=== PATIENT | female | born 1945 | race Caucasian/White ===

== ENCOUNTER 2024-04-09 16:29 | Inpatient (IN) | payer MEDICARE, SELFPAY ==
--- NOTE | ~2024-04-09 | XR_ITS ---
EXAMINATION: XR CHEST CLINICAL INFORMATION: Pneumonia. COMPARISON: None available. TECHNIQUE: 2 views of the chest were obtained (PA and lateral). FINDINGS: The lungs are hyperexpanded. Moderately increased irregular lung markings throughout. Hazy/patchy airspace opacification in the right lung base with partial silhouetting of the posterior right hemidiaphragm. No additional focal consolidative process. No evidence of pleural effusion, pulmonary edema, or pneumothorax. The cardiomediastinal silhouette is within normal limits. No acute osseous abnormalities. Mild hyperkyphosis of the thoracic spine. Mild multilevel degenerative spondyloarthropathy of the thoracic spine. XR/XR chest 2V IMPRESSION: 1. Hazy/patchy airspace opacification in the right lung base suggestive of developing pneumonia in the appropriate clinical setting. 2. Underlying emphysema. Electronically signed by: Sammy Santos DO 04/09/2024 08:31 PM EDT
[2024-04-09 16:34] VITALS: BP 148/73; PULSE 113; RESP 20; TEMP 37.6; O2SAT 89; BMI 17.0
--- NOTE | 2024-04-09 16:34 | ED.GENADULT ---
HPI - General Adult General Chief complaint: Dyspnea Stated complaint: pheumonia? Time Seen by Provider: 04/09/24 21:41 Source: patient Limitations: no limitations History of Present Illness ED Provider: Adriane wilkerson PA-C HPI narrative: 78-year-old female with a history of COPD and tobacco abuse presents with cough and cold symptoms x1 week. The cough is persistent and now has become productive, patient has developed fevers at home over the past day. Patient is currently febrile 101.2. She also has a new oxygen requirement she was hypoxic in triage, she was now on 3 L nasal cannula. Related Data Allergies Allergy/AdvReac Type Severity Reaction Status Date / Time No Known Allergies Allergy Verified 04/09/24 16:35 Review of Systems Review of Systems: Yes all other systems are reviewed and are negative Constitutional: Constitutional: Reports fatigue and Reports fever(s) Cardiovascular: Cardiovascular: Denies chest pain and Reports dyspnea Respiratory: Respiratory: Reports cough, Reports excessive phlegm production, Reports dyspnea and Denies wheezing Endocrine: Endocrine: Reports fatigue Allergic/Immunologic: Allergic/Immunologic: Denies wheezing PMFSH Past Medical History Attestation statement: The following information was validated with the patient. Social History Social History Advance Directives: No Advance Directives Information Provided: No Physical Exam ED Vital Signs: Vital Signs - 24 hr 04/09/24 16:34 04/09/24 16:43 04/09/24 20:43 Temperature 99.6 F 100.3 F Pulse Rate 113 H 102 H Respiratory Rate 20 21 H Blood Pressure 148/73 H 127/56 L Pulse Oximetry 89 L 93 91 L Oxygen Delivery Method Room Air Nasal Cannula Nasal Cannula Oxygen Flow Rate 3 3 04/09/24 22:09 Temperature 101.2 F H Pulse Rate 102 H Respiratory Rate 20 Blood Pressure 122/61 Pulse Oximetry 94 Oxygen Delivery Method Nasal Cannula Oxygen Flow Rate 3 BMI result Body Mass Index 17.0 Const Other: Alert, cachectic, ill in appearance Orientation/consciousness: patient oriented x3 Resp Other: Nonlabored respirations, active productive cough, no wheezing Cardio Other: Normal peripheral perfusion Skin Other: Warm dry no rash Neuro General: patient oriented x3, no focal motor deficits and CN's II-XI intact bilaterally Psych Other: Calm cooperative Course Course Course Narrative: This is a rapid medical exam performed by Ruby Khalil NP: Additional HPI, ROS, PE not included below will be deferred to primary provider. Patient is an 78-year-old female presenting from PCP office with +pneumonia on cxr there. Patient hypoxic and tachycardic in triage, O2 89% on room air and HR 117. States she has had productive cough for the past week. Placed on O2 at 3lpm via NC with improvement to 93%. Plan: labs including cultures and lactic, will repeat cxr as images not available Medical Decision Making Medical Decision Making [facility] Narrative: 78-year-old female with a history of COPD and tobacco abuse presents with cough and cold symptoms x1 week. The cough is persistent and now has become productive, patient has developed fevers at home over the past day. Patient is currently febrile 101.2. She also has a new oxygen requirement she was hypoxic in triage, she was now on 3 L nasal cannula. Problem: COPD and tobacco abuse History: Per patient I have considered the following differential diagnoses: COPD exacerbation, viral syndrome, pneumonia, bronchitis Plan: Patient has a developing pneumonia on chest x-ray, she is not wheezing, I am not treating her for COPD exacerbation, blood cultures already obtained, we will start weight based IV fluid, ceftriaxone and azithromycin, she just spiked a temp, giving Tylenol we will be admitting to the hospital given the new oxygen requirement. I have independently reviewed the following tests: Labs: No leukocytosis, not anemic, no electrolyte abnormality, viral panel is negative Chest x-ray:None available. TECHNIQUE: 2 views of the chest were obtained (PA and lateral). FINDINGS: The lungs are hyperexpanded. Moderately increased irregular lung markings throughout. Hazy/patchy airspace opacification in the right lung base with partial silhouetting of the posterior right hemidiaphragm. No additional focal consolidative process. No evidence of pleural effusion, pulmonary edema, or pneumothorax. The cardiomediastinal silhouette is within normal limits. No acute osseous abnormalities. Mild hyperkyphosis of the thoracic spine. Mild multilevel degenerative spondyloarthropathy of the thoracic spine. XR/XR chest 2V IMPRESSION: 1. Hazy/patchy airspace opacification in the right lung base suggestive of developing pneumonia in the appropriate clinical setting. 2. Underlying emphysema. Electronically signed by: Sammy Santos DO 04/09/2024 08:31 PM EDT RP Lab Data 10/10/24 16:58 04/09/24 16:58 Labs: Lab Results 04/09/24 04/09/24 Range/Units 16:58 16:59 WBC 10.1 (4.8-10.8) X10*3/uL RBC 4.52 (4.20-5.50) X10*6/uL Hgb 14.0 (12.0-16.0) g/dl Hct 41.2 (37.0-47.0) % MCV 91.2 (80.0-98.0) fL MCH 31.0 (27.0-33.0) pg MCHC 34.0 (31.0-35.0) g/dl RDW 13.0 (11.0-16.0) % Plt Count 200 (160-400) X10*3/uL MPV 8.9 L (9.4-12.3) fL Immature Gran % (Auto) 0.3 (0.0-0.4) % Neut % (Auto) 82.9 H (45-73) % Lymph % (Auto) 9.6 L (20-40) % [place] % (Auto) 6.9 (2-11) % Eos % (Auto) 0.1 (0-4) % Baso % (Auto) 0.2 (0-2) % Lymph # (Auto) 1.0 L (1.2-4.9) X10*3/uL [place] # (Auto) 0.7 (0.1-1.2) X10*3/uL Eos # (Auto) 0.0 (0.0-0.4) X10*3/uL Baso # (Auto) 0.0 (0.0-0.2) X10*3/uL Abs Immat Gran (auto) 0.03 (0.00-0.03) X10*3/uL Absolute Neuts (auto) 8.3 (2.0-8.3) x10*3/uL Absolute Nucleated RBC 0.000 (0.0-0.012) X10*3/uL Nucleated RBC % (auto) 0.0 (0.0-0.2) /100WBC Sodium 138 (135-145) mmol/L Potassium 4.3 (3.3-5.1) mmol/L Chloride 103 (96-108) mmol/L Carbon Dioxide 26 (22-29) mmol/L Anion Gap 13 (12-20) BUN 12 (9-16) mg/dL Creatinine 0.82 (0.5-1.4) mg/dL Estim Creat Clear Calc 37.6 Estimated GFR > 60 Random Glucose 136 H (60-115) mg/dL Lactic Acid 1.1 (0.5-2.0) mmol/L Calcium 9.8 (8.4-10.2) mg/dL Total Bilirubin 0.7 (0.0-1.0) mg/dL AST 68 H (5-31) U/L ALT 77 H (0-31) U/L Alkaline Phosphatase 115 (39-117) U/L Total Protein 7.2 (6.5-8.0) g/dL Albumin 4.0 (3.5-5.0) g/dL Influenza Type A (PCR) NEGATIVE (Negative) Influenza Type B (PCR) NEGATIVE (Negative) RSV RNA Qual (PCR) NEGATIVE (Negative) SARS-CoV-2 RNA (RT-PCR) NEGATIVE (Negative) Discharge Plan Discharge Print Language: Singaporean
[2024-04-09 16:43] VITALS: O2SAT 93
[2024-04-09 17:05] LABS: MANUAL DIFF FLAG NO
[2024-04-09 17:09] LABS: Basophils Percent Auto 0.2 % (0-2); Eosinophils Percent Auto 0.1 % (0-4); Hematocrit 41.2 % (37.0-47.0); Imm Gran Abs Auto 0.03 X10*3/uL (0.00-0.03); Imm Gran Pct Auto 0.3 % (0.0-0.4); Lymphocytes Percent Auto 9.6 % (20-40); Mean Corpuscular Volume 91.2 fL (80.0-98.0); Mean Platelet Volume 8.9 fL (9.4-12.3); Monocytes Absolute Auto 0.7 X10*3/uL (0.1-1.2); Monocytes Percent Auto 6.9 % (2-11); Neutrophils Absolute Auto 8.3 x10*3/uL (2.0-8.3); Neutrophils Percent Auto 82.9 % (45-73); Platelet Count 200 X10*3/uL (160-400); Red Blood Count 4.52 X10*6/uL (4.20-5.50); White Blood Count 10.1 X10*3/uL (4.8-10.8)
[2024-04-09 17:19] LABS: Lactic Acid 1.1 mmol/L (0.5-2.0)
[2024-04-09 17:24] LABS: Alanine Aminotransferase 77 U/L (0-31); Alkaline Phosphatase 115 U/L (39-117); Anion Gap 13 (12-20); Aspartate Amino Transferase 68 U/L (5-31); Bilirubin Total 0.7 mg/dL (0.0-1.0); Blood Urea Nitrogen 12 mg/dL (9-16); Calcium 9.8 mg/dL (8.4-10.2); Carbon Dioxide 26 mmol/L (22-29); Chloride 103 mmol/L (96-108); Creatinine Clr Calc Pharmacy 37.6; Estimated Glomerular Filt Rate > 60; Glucose Random 136 mg/dL (60-115); Potassium 4.3 mmol/L (3.3-5.1); Sodium 138 mmol/L (135-145); Total Protein 7.2 g/dL (6.5-8.0)
[2024-04-09 17:46] LABS: Influenza A PCR NEGATIVE (Negative); Influenza B PCR NEGATIVE (Negative); Resp Syncy Virus RNA Qual PCR NEGATIVE (Negative); SARS COV2 PCR INHOUSE NEGATIVE (Negative)
[2024-04-09 20:43] VITALS: BP 127/56; PULSE 102; RESP 21; TEMP 37.9; O2SAT 91
[2024-04-09 22:09] VITALS: BP 122/61; PULSE 102; RESP 20; TEMP 38.4; O2SAT 94
--- NOTE | 2024-04-09 22:21 | PM.IMHP ---
History of Present Illness Date of Service: 04/09/24 Chief Complaint: Cough This is a 78-year-old female with pertinent history of tobacco use disorder, COPD not on home oxygen who presents to the emergency department for evaluation of cough and dyspnea. Patient states her symptoms started 1 week prior to presentation. Initially she had nasal congestion with soon progressed and patient started having productive cough with purulent sputum production. Also complains of wheezing and dyspnea which is worse with exertion. Does endorse smoking tobacco which she stopped 1 week ago since she was sick. Does not take any prescription medications, only takes [id number] vitamins. Admits fevers and chills. No chest pain, palpitations, abdominal pain, changes in urinary or bowel habits. In the emergency department, patient was found to be septic and requiring 3 L supplemental oxygen. Imaging with right-sided pneumonia. Review of Systems Constitutional: Constitutional: Reports fatigue and Reports malaise Cardiovascular: Cardiovascular: Reports dyspnea on exertion Respiratory: Respiratory: Reports cough, Reports dyspnea on exertion and Reports wheezing Gastrointestinal: Gastrointestinal: Reports no additional gastrointestinal complaints Genitourinary: Genitourinary: Reports no additional female genitourinary complaints Endocrine: Endocrine: Reports fatigue Allergic/Immunologic: Allergic/Immunologic: Reports wheezing [facility] Medical History (Updated 04/09/24 @ 22:23 by Nancy Baker MD) Tobacco use disorder COPD (chronic obstructive pulmonary disease) Pertinent family history: No family history of early CAD Social History Advance Directives: No Advance Directives Information Provided: No Meds Allergies Allergy/AdvReac Type Severity Reaction Status Date / Time No Known Allergies Allergy Verified 04/09/24 16:35 Active Medications: Current Medications Acetaminophen (Acetaminophen 325 Mg Tablet) 650 mg PO Q6H PRN PRN Reason: Pain, Mild (Pain Scale 1-3), fever or headache Calcium Carbonate (Calcium Carbonate 750 Mg Tab.Chew) 750 mg PO Q4H PRN PRN Reason: Heartburn Sodium Chloride (Ns) 1,306.35 mls @ 1,306.35 mls/hr 30 ml/kg infuse over 1 hr (1306.35 ml) IV .Q1H STA Stop: 04/09/24 23:05 Ceftriaxone Sodium 2 gm/ (Sodium Chloride) 50 mls @ 100 mls/hr IV ONCE ONE Stop: 04/09/24 22:35 Azithromycin 500 mg/ Sodium (Chloride) 250 mls @ 125 mls/hr IV ONCE ONE Stop: 04/10/24 00:05 Magnesium Hydroxide (Milk Of Magnesia 30 Ml Oral.Susp) 30 ml PO DAILY PRN PRN Reason: Constipation Melatonin (Melatonin 3 Mg Tablet) 6 mg PO BEDTIME PRN PRN Reason: Insomnia Sodium Chloride (0.9 % Sodium Chloride Flush 3 Ml Syringe) 3 ml IVFLUSH QSHIFT [facility] Physical Exam Vital Signs and Narrative: Vital Signs: Last Vital Signs Temp 101.2 F H 04/09/24 22:09 Pulse 102 H 04/09/24 22:09 Resp 20 04/09/24 22:09 BP 122/61 04/09/24 22:09 Pulse Ox 94 04/09/24 22:09 O2 Del Method Nasal Cannula 04/09/24 22:09 O2 Flow Rate 3 04/09/24 22:09 BMI result Body Mass Index 17.0 Middle-aged female lying in bed in mild distress on supplemental oxygen Neck supple, no JVD Tachycardic with regular rhythm, S1-S2 heard Right-sided crackles present with wheezing Abdomen soft nontender, no guarding, no rigidity Patient is awake, alert and oriented to self, place, time and person ; no focal motor deficit Psych: Normal mood No pedal edema Results Labs 04/09/24 16:58 04/09/24 16:58 Labs: Laboratory Results - last 24 hr 04/09/24 04/09/24 16:58 16:59 MCV 91.2 MCH 31.0 MCHC 34.0 RDW 13.0 Plt Count 200 MPV 8.9 L Immature Gran % (Auto) 0.3 Neut % (Auto) 82.9 H Lymph % (Auto) 9.6 L [place] % (Auto) 6.9 Eos % (Auto) 0.1 Baso % (Auto) 0.2 Lymph # (Auto) 1.0 L [place] # (Auto) 0.7 Eos # (Auto) 0.0 Baso # (Auto) 0.0 Abs Immat Gran (auto) 0.03 Absolute Neuts (auto) 8.3 Absolute Nucleated RBC 0.000 Nucleated RBC % (auto) 0.0 Anion Gap 13 Estim Creat Clear Calc 37.6 Estimated GFR > 60 Random Glucose 136 H Lactic Acid 1.1 Calcium 9.8 Total Bilirubin 0.7 AST 68 H ALT 77 H Alkaline Phosphatase 115 Total Protein 7.2 Albumin 4.0 Influenza Type A (PCR) NEGATIVE Influenza Type B (PCR) NEGATIVE RSV RNA Qual (PCR) NEGATIVE SARS-CoV-2 RNA (RT-PCR) NEGATIVE Imaging Radiologist's Impressions: Impressions Chest X-Ray 04/09/24 16:36 IMPRESSION: 1. Hazy/patchy airspace opacification in the right lung base suggestive of developing pneumonia in the appropriate clinical setting. 2. Underlying emphysema. Electronically signed by: Sammy Santos DO 04/09/2024 08:31 PM EDT RP Assessment and Plan (1) Hypoxic: Status: Acute (2) Pneumonia: Status: Acute Plan This is a 78-year-old female with pertinent history of tobacco use disorder, COPD not on home oxygen who presents to the emergency department for evaluation of cough. #. Acute hypoxemic respiratory failure and sepsis due to right-sided pneumonia: Will admit patient with supplemental oxygen. Resuscitated with IV crystalloids. Lactic acid blood culture obtained. Initiating antibiotics for CAP. Sputum culture pending. Monitor oxygen saturation and wean as tolerated #. COPD with acute exacerbation in the setting of above: Initiating systemic steroids, scheduled and p.r.n. DuoNebs #. Tobacco use disorder: Counseled regarding cessation. Nicotine patch while in the hospital Med rec pending DVT prophylaxis: Lovenox Full code Admit as inpatient and will require two night minimum hospital stay for IV antibiotics, supplemental oxygen (as above), which is not possible in a lesser acute setting. Quality Stroke Does the patient have a stroke diagnosis?: No VTE Prior VTE?: No VTE Risk Level:: Medical - moderate - high VTE Device Contraindication: Treatment Not Indicated VTE Drug Contraindication: N/A - Med Ordered
[2024-04-09] MEDS: SODIUM CHLORIDE 1306.35 ML IV (22:22)
[2024-04-09] MEDS: Acetaminophen 325 MG TABLET 975 MG PO (22:52)
[2024-04-09] MEDS: Enoxaparin Sodium 40 MG/0.4 ML SYRINGE SUBCUT (22:52)
[2024-04-09] MEDS: cefTRIAXone sodium 2 GM in 0.9 % Sodium Chloride 50 ML IV (22:53)
--- NOTE | 2024-04-09 22:55 | PC.NURSE ---
Assumed care of pt. Pt currently lying on stretcher, no acute distress. pt on 3L O2 via NC. Respirations even and unlabored.
[2024-04-10] VITALS (8 sets, daily range): BP systolic 97–130; BP diastolic 51–59; PULSE 76–100; RESP 16–20; TEMP 36.5–37; O2SAT 89–99; BMI 17.6
[2024-04-10] MEDS: Azithromycin 500 MG in 0.9 % Sodium Chloride 250 ML 125 MG IV (00:13)
[2024-04-10] MEDS: predniSONE 20 MG TABLET 40 MG PO ×2 (00:44→09:22)
[2024-04-10 04:43] LABS: MANUAL DIFF FLAG NO
[2024-04-10 04:50] LABS: Basophils Percent Auto 0.4 % (0-2); Eosinophils Percent Auto 0.1 % (0-4); Hematocrit 38.5 % (37.0-47.0); Hemoglobin 12.5 g/dl (12.0-16.0); Imm Gran Abs Auto 0.05 X10*3/uL (0.00-0.03); Imm Gran Pct Auto 0.5 % (0.0-0.4); Lymphocytes Percent Auto 9.4 % (20-40); Mean Corpuscular HGB Conc 32.5 g/dl (31.0-35.0); Mean Corpuscular Volume 92.3 fL (80.0-98.0); Mean Platelet Volume 9.9 fL (9.4-12.3); Monocytes Absolute Auto 0.5 X10*3/uL (0.1-1.2); Monocytes Percent Auto 4.6 % (2-11); Neutrophils Absolute Auto 9.5 x10*3/uL (2.0-8.3); Platelet Count 179 X10*3/uL (160-400); Red Blood Count 4.17 X10*6/uL (4.20-5.50); White Blood Count 11.1 X10*3/uL (4.8-10.8)
[2024-04-10 05:06] LABS: Anion Gap 14 (12-20); Blood Urea Nitrogen 11 mg/dL (9-16); Calcium 8.4 mg/dL (8.4-10.2); Carbon Dioxide 22 mmol/L (22-29); Chloride 107 mmol/L (96-108); Estimated Glomerular Filt Rate > 60; Glucose Random 133 mg/dL (60-115); Potassium 3.8 mmol/L (3.3-5.1); Sodium 139 mmol/L (135-145)
--- NOTE | 2024-04-10 07:33 | P.PNIM_ITS ---
Subjective Subjective Date of Service: 04/10/24 Interval History: f/u on acute hypoxic resp failure due to copd ex, pna and sepsis feels better, still needs O2 Physical Exam 2 Vital Signs: Vital Signs: Last Vital Signs Temp 97.7 F 04/10/24 07:17 Pulse 77 04/10/24 07:17 Resp 19 04/10/24 07:17 BP 101/53 L 04/10/24 07:17 Pulse Ox 93 04/10/24 07:17 O2 Del Method Nasal Cannula 04/10/24 07:17 O2 Flow Rate 4 04/10/24 07:17 BMI result Body Mass Index 17.0 Const: Other: General: AO X 3, no acute distress Resp: diminished bilt CVS: S1,S2,RRR GI: +BS, NT, no distention Skin: No rash Neuro: motor grossly intact Psych: appropriate affect Objective Data Active Medications Acetaminophen (Acetaminophen 325 Mg Tablet) 650 mg PO Q6H PRN PRN Reason: Pain, Mild (Pain Scale 1-3), fever or headache Albuterol/Ipratropium (Albuterol/Iprat 2.5/0.5mg 3 Ml Ampul.Neb) 3 ml INHALE RQ4H WHILE AWAKE JUAN J Albuterol/Ipratropium (Albuterol/Iprat 2.5/0.5mg 3 Ml Ampul.Neb) 3 ml INHALE Q4H PRN PRN Reason: Wheezing Azithromycin (Azithromycin 500 Mg Tablet) 500 mg PO Q24H JUAN J Calcium Carbonate (Calcium Carbonate 750 Mg Tab.Chew) 750 mg PO Q4H PRN PRN Reason: Heartburn Enoxaparin Sodium (Enoxaparin Sodium 40 Mg/0.4 Ml Syringe) 40 mg SUBCUT Q24H [facility] Last Admin: 04/09/24 22:52 Dose: 40 mg Documented By: DAYSI Ceftriaxone Sodium 1 gm/ (Sodium Chloride) 50 mls @ 100 mls/hr IV Q24H [facility] Magnesium Hydroxide (Milk Of Magnesia 30 Ml Oral.Susp) 30 ml PO DAILY PRN PRN Reason: Constipation Melatonin (Melatonin 3 Mg Tablet) 6 mg PO BEDTIME PRN PRN Reason: Insomnia Ondansetron HCl (Ondansetron Hcl 4 Mg/2 Ml Vial) 4 mg IVPUSH Q8H PRN PRN Reason: Nausea and Vomiting Prednisone (Prednisone 20 Mg Tablet) 40 mg PO DAILY [facility] Last Admin: 04/10/24 00:44 Dose: 40 mg Documented By: SYLVAIN Sodium Chloride (0.9 % Sodium Chloride Flush 3 Ml Syringe) 3 ml IVFLUSH QSHIFT [facility] Last Admin: 04/10/24 00:16 Dose: Not Given Documented By: SYLVAIN Non-Admin Reason: IV Running Labs 04/10/24 04:18 04/10/24 04:18 Labs: Laboratory Results - last 24 hr 04/09/24 04/09/24 04/10/24 16:58 16:59 04:18 MCV 91.2 92.3 MCH 31.0 30.0 MCHC 34.0 32.5 RDW 13.0 13.0 Plt Count 200 179 MPV 8.9 L 9.9 Immature Gran % (Auto) 0.3 0.5 H Neut % (Auto) 82.9 H 85.0 H Lymph % (Auto) 9.6 L 9.4 L [place] % (Auto) 6.9 4.6 Eos % (Auto) 0.1 0.1 Baso % (Auto) 0.2 0.4 Lymph # (Auto) 1.0 L 1.0 L [place] # (Auto) 0.7 0.5 Eos # (Auto) 0.0 0.0 Baso # (Auto) 0.0 0.0 Abs Immat Gran (auto) 0.03 0.05 H Absolute Neuts (auto) 8.3 9.5 H Absolute Nucleated RBC 0.000 0.000 Nucleated RBC % (auto) 0.0 0.0 Anion Gap 13 14 Estim Creat Clear Calc 37.6 44.0 Estimated GFR > 60 > 60 Random Glucose 136 H 133 H Lactic Acid 1.1 Calcium 9.8 8.4 D Total Bilirubin 0.7 AST 68 H ALT 77 H Alkaline Phosphatase 115 Total Protein 7.2 Albumin 4.0 Influenza Type A (PCR) NEGATIVE Influenza Type B (PCR) NEGATIVE RSV RNA Qual (PCR) NEGATIVE SARS-CoV-2 RNA (RT-PCR) NEGATIVE Assessment and Plan (1) Tobacco use disorder: Status: Acute (2) COPD (chronic obstructive pulmonary disease): Status: Acute (3) Hypoxic: Status: Acute (4) Pneumonia: Status: Acute Plan 78/F with history of tobacco use disorder, COPD not on home oxygen, presented with cough and SOB, and admitted for acute hypoxic respiratory failure d/t copd ex, and PNA Acute hypoxemic respiratory failure d/t PNA and COPD exacerbation -Treat underlying sepsis, PNA and COPD ex -O2 to keep sat 88 to 93 Sepsis d/t PNA, sepsis resolved (fever and tachy resolved) -continue Continue Azithro and Ceftriaxone, started 04/09 -follow cultures COPD with acute exacerbation in the setting of above -IV steroid -Bronchodilators by Neb -O2, goal of 88 to 93 Tobacco use disorder -Cessation discussed -NRT No home meds on record DVT prophylaxis: Lovenox Full code need for inpt: management of acute hypoxic resp failure, sepsis, PNA and copd exacerbation needing O2 Quality Stroke Does the patient have a stroke diagnosis?: No VTE Prior VTE?: No VTE Risk Level:: Medical - moderate - high VTE Device Contraindication: Treatment Not Indicated VTE Drug Contraindication: N/A - Med Ordered
--- NOTE | 2024-04-10 07:36 | PC.NURSE ---
Resumed care of pt at 0700. Pt resting in bed quietly, in no distress, no wob/sob noted. Pt on 3L NC, maintaining O2 sat 94-96%. Pt updated on need for sputum culture. Up in bed eating breakfast, states no pain at this time. Call malagon within reach, all needs met at this time.
--- NOTE | 2024-04-10 08:30 | PHA.MEDREC ---
Addendum entered by Aditi Emanuel RPh 04/10/24 08:39: Tashia reviewed Original Note: Pharmacy Consult ? Medication Reconciliation Pharmacy has completed the medication reconciliation. Patient confirmed she is only taking Vitamin D3 25mcg (200unit) tabs 1 tab daily and she last took it yesterday.
[2024-04-10] MEDS: 0.9 % Sodium Chloride Flush 3 ML SYRINGE IVFLUSH ×3 (09:15→23:49)
[2024-04-10] MEDS: Albuterol/Iprat 2.5/0.5MG 3 ML AMPUL.NEB INHALE ×4 (09:17→19:09)
--- NOTE | 2024-04-10 12:07 | MHC.CM.PN ---
PT LIVES WITH S/O IS INDEPENDENT HAS OWN RIDE HOME
[2024-04-10] MEDS: guaiFEN/Codeine SF 200/20/10ML 10 ML LIQUID 5 ML PO (21:43)
--- NOTE | 2024-04-10 21:44 | PC.NURSE ---
pt c/o continuous cough, preventing sleep. pt medicated per AUG
[2024-04-10] MEDS: Enoxaparin Sodium 40 MG/0.4 ML SYRINGE SUBCUT (23:12)
[2024-04-10] MEDS: cefTRIAXone sodium 1 GM VIAL IV (23:12)
[2024-04-10] MEDS: Azithromycin 500 MG TABLET PO (23:12)
[2024-04-11] VITALS (8 sets, daily range): BP systolic 104–127; BP diastolic 50–60; PULSE 67–116; RESP 12–24; TEMP 36.8–37.2; O2SAT 89–97
[2024-04-11] MEDS: guaiFEN/Codeine SF 200/20/10ML 10 ML LIQUID 5 ML PO (04:54)
[2024-04-11] MEDS: Acetaminophen 325 MG TABLET 650 MG PO (07:58)
[2024-04-11] MEDS: predniSONE 20 MG TABLET 40 MG PO (07:58)
[2024-04-11] MEDS: 0.9 % Sodium Chloride Flush 3 ML SYRINGE IVFLUSH (07:58)
[2024-04-11] MEDS: Albuterol/Iprat 2.5/0.5MG 3 ML AMPUL.NEB INHALE ×3 (08:14→15:11)
--- NOTE | 2024-04-11 11:40 | HO.PM.IMPN ---
Subjective Subjective Date of Service: 04/11/24 Interval History: f/u on acute hypoxic resp failure due to copd ex, pna and sepsis feels better, O2 89 on room air. Physical Exam Vital Signs: Vital Signs: Last Vital Signs Temp 99.0 F 04/11/24 08:00 Pulse 67 04/11/24 11:26 Resp 14 04/11/24 11:26 BP 111/58 L 04/11/24 08:00 Pulse Ox 89 L 04/11/24 08:00 O2 Del Method Room Air 04/11/24 08:00 O2 Flow Rate 4 04/10/24 07:17 BMI result Body Mass Index 17.6 General: AO X 3, no acute distress Resp: CTA bilateral CVS: S1,S2,RRR GI: +BS, NT, no distention Skin: No rash Neuro: motor grossly intact Psych: appropriate affect Objective Data Active Medications Acetaminophen (Acetaminophen 325 Mg Tablet) 650 mg PO Q6H PRN PRN Reason: Pain, Mild (Pain Scale 1-3), fever or headache Last Admin: 04/11/24 07:58 Dose: 650 mg Documented By: ANTONIA Albuterol/Ipratropium (Albuterol/Iprat 2.5/0.5mg 3 Ml Ampul.Neb) 3 ml INHALE RQ4H WHILE AWAKE [facility] Last Admin: 04/11/24 11:26 Dose: 3 ml Documented By: LILIA Albuterol/Ipratropium (Albuterol/Iprat 2.5/0.5mg 3 Ml Ampul.Neb) 3 ml INHALE Q4H PRN PRN Reason: Wheezing Azithromycin (Azithromycin 500 Mg Tablet) 500 mg PO Q24H [facility] Last Admin: 04/10/24 23:12 Dose: 500 mg Documented By: MONTSE Benzonatate (Benzonatate 100 Mg Capsule) 100 mg PO TID PRN PRN Reason: Cough Calcium Carbonate (Calcium Carbonate 750 Mg Tab.Chew) 750 mg PO Q4H PRN PRN Reason: Heartburn Ceftriaxone Sodium (Ceftriaxone Sodium 1 Gm Vial) 1 gm IV Q24H [facility] Last Admin: 04/10/24 23:12 Dose: 1 gm Documented By: MONTSE Enoxaparin Sodium (Enoxaparin Sodium 40 Mg/0.4 Ml Syringe) 40 mg SUBCUT Q24H [facility] Last Admin: 10/11/24 23:12 Dose: 40 mg Documented By: MONTSE Guaifenesin/Codeine Phosphate (Guaifen/Codeine Sf 200/20/10ml 10 Ml Liquid) 5 ml PO Q6H PRN PRN Reason: Cough Last Admin: 04/11/24 04:54 Dose: 5 ml Documented By: MONTSE Comments: requested for cough Magnesium Hydroxide (Milk Of Magnesia 30 Ml Oral.Susp) 30 ml PO DAILY PRN PRN Reason: Constipation Melatonin (Melatonin 3 Mg Tablet) 6 mg PO BEDTIME PRN PRN Reason: Insomnia Ondansetron HCl (Ondansetron Hcl 4 Mg/2 Ml Vial) 4 mg IVPUSH Q8H PRN PRN Reason: Nausea and Vomiting Prednisone (Prednisone 20 Mg Tablet) 40 mg PO DAILY [facility] Last Admin: 04/11/24 07:58 Dose: 40 mg Documented By: ANTONIA Sodium Chloride (0.9 % Sodium Chloride Flush 3 Ml Syringe) 3 ml IVFLUSH QSHIFT [facility] Last Admin: 04/11/24 07:58 Dose: 3 ml Documented By: ANTONIA Labs 04/10/24 04:18 04/10/24 04:18 Microbiology Microbiology Results: Microbiology 04/10/24 13:56 Gram Stain - Final Sputum - Induced Sputum Culture - Preliminary Culture in progress. 04/09/24 17:05 Blood Culture - Preliminary Blood - Venous No growth after 24 hours. 04/09/24 16:58 Blood Culture - Preliminary Blood - Venous No growth after 24 hours. Assessment and Plan (1) Tobacco use disorder: Status: Acute (2) COPD (chronic obstructive pulmonary disease): Status: Acute (3) Hypoxic: Status: Acute (4) Pneumonia: Status: Acute Plan 78/F with history of tobacco use disorder, COPD not on home oxygen, presented with cough and SOB, and admitted for acute hypoxic respiratory failure d/t copd ex, and PNA Acute hypoxemic respiratory failure d/t PNA and COPD exacerbation -Treat underlying sepsis, PNA and COPD ex -O2, keep sat 88 to 93, Sepsis d/t PNA, sepsis resolved (fever and tachy resolved) -continue Continue Azithro and Ceftriaxone, started 04/09 -cultures negative COPD with acute exacerbation in the setting of above -IV steroid, change to PO prednisone -Bronchodilators by Neb -O2, goal of 88 to 93 Tobacco use disorder -Cessation discussed -NRT No home meds on record DVT prophylaxis: Lovenox Full code need for inpt: management of acute hypoxic resp failure, sepsis, PNA and copd exacerbation needing O2 Possible home today Quality Stroke Does the patient have a stroke diagnosis?: No VTE Prior VTE?: No VTE Risk Level:: Medical - moderate - high VTE Device Contraindication: Treatment Not Indicated VTE Drug Contraindication: N/A - Med Ordered
--- NOTE | 2024-04-11 12:12 | P.DS_ITS ---
DS: Providers Provider Date of Service: 04/11/24 Date of admission: 04/09/24 22:19 Primary care physician: Jaquelin Moreno MD DS: Diagnosis Discharge Diagnosis (1) Tobacco use disorder: Status: Acute (2) COPD (chronic obstructive pulmonary disease): Status: Inactive (3) Hypoxic: Status: Resolved (4) Pneumonia: Status: Acute DS: Summary Hospital Course Hospital Course: Admission hpi Chief Complaint: Cough This is a 78-year-old female with pertinent history of tobacco use disorder, COPD not on home oxygen who presents to the emergency department for evaluation of cough and dyspnea. Patient states her symptoms started 1 week prior to presentation. Initially she had nasal congestion with soon progressed and patient started having productive cough with purulent sputum production. Also complains of wheezing and dyspnea which is worse with exertion. Does endorse smoking tobacco which she stopped 1 week ago since she was sick. Does not take any prescription medications, only takes [id number]-zmoctsd vitamins. Admits fevers and chills. No chest pain, palpitations, abdominal pain, changes in urinary or bowel habits. In the emergency department, patient was found to be septic and requiring 3 L supplemental oxygen. Imaging with right-sided pneumonia. hospital course: An 78-year-old female with no known chronic medical conditions but a lifelong history of smoking presented with fever, cough, and hypoxia. Workup revealed a normal WBC count and a chest X-ray showing a developing right lower lobe pn eumonia. She met sepsis criteria and was started on ceftriaxone and azithromycin for pneumonia, as well as prednisone and bronchodilators for a COPD exacerbation. She has shown overall improvement, with an oxygen saturation of 92% on room air, though it drops to 87-88% after prolonged ambulation, but without symptoms. Despite a likely undiagnosed COPD and qualifying for home oxygen due to her sm oking history, she has declined home oxygen and is unwilling to quit smoking. She will be discharged with cefuroxime and azithromycin for pneumonia, along with albuterol and prednisone for the COPD exacerbation. She has been advised to follow up with her primary care provider in one week. Final diagnoses: 1. SEpsis 2. Pneumonia 3. Acute hypoxic respiratory failure 4. COPD exacerbation 5. Chronic tobacco use disorder Time Attestation Discharge Coordination Time (in mins): 45 Quality: Safe Use of Opioids Does Pt have an Active Cancer Diagnosis on the Problem List?: No Quality: Stroke Does the patient have a stroke diagnosis?: No Physical Exam Vital Signs: Vital Signs: Last Vital Signs Temp 99.0 F 04/11/24 08:00 Pulse 67 04/11/24 11:26 Resp 14 04/11/24 11:26 BP 111/58 L 04/11/24 08:00 Pulse Ox 89 L 04/11/24 08:00 O2 Del Method Room Air 04/11/24 08:00 O2 Flow Rate 4 04/10/24 07:17 BMI result Body Mass Index 17.6 General: AO X 3, no acute distress Resp: CTA bilateral CVS: S1,S2,RRR GI: +BS, NT, no distention Skin: No rash Neuro: motor grossly intact Psych: appropriate affect DS: Data Data Completed and Pending Labs on day of discharge: Preliminary micro results at discharge 04/10/24 13:56 Sputum Culture - Preliminary Sputum - Induced Culture in progress. 04/09/24 17:05 Blood Culture - Preliminary Blood - Venous No growth after 24 hours. 04/09/24 16:58 Blood Culture - Preliminary Blood - Venous No growth after 24 hours. Discharge Plan Discharge Anticipated Discharge Date/Time: 04/11/24 12:13 Patient Disposition: Home, Self-Care Discharge Diagnosis: Pneumonia, CODP exacerbation Referrals: Jaquelin Moreno MD [Primary Care Provider] - 1 Week Discharge Medications: New azithromycin 250 mg Tablet 250 mg PO Q24H Qty: 3 0RF cefuroxime axetil 500 mg Tablet 500 mg PO Q12H Qty: 10 0RF albuterol sulfate [Ventolin HFA] 90 mcg/actuation Hfa Aerosol Inhaler 2 puff inhalation RQ6H PRN (Reason: Shortness Of Breath/Wheezing) Qty: 8.5 0RF prednisone 20 mg Tablet 40 mg PO DAILY Qty: 3 0RF Continued cholecalciferol (vitamin D3) [Vitamin D3] 50 mcg (2,000 unit) Capsule 50 mcg PO DAILY Discharge Orders: Discharge Order (Routine); Ordered 04/11/24 Ordered By: Norm Campo Diet: Advance to usual diet Activity on Discharge: As tolerated Stand Alone Forms: Patient Portal Discharge page Print Language: Vietnamese Care Plan Goals: recovery from copd exacerbation and pneumonia Health Concerns: copd pneumonia tobacco use disorder Plan of Treatment: take Azithromycin and Cefuroxime as directed take Prednisone as directed Use inhalers as directed use oxygen as directed stop smoking follow up with your doctor in a week Assessment: see above Discharge Date/Time: 04/11/24 15:39
[2024-04-11] MEDS: Benzonatate 100 MG CAPSULE PO (14:28)
[2024-04-11] MEDS: Azithromycin 250 MG TABLET PO (14:29)
[2024-04-11] MEDS: cefuroxime axetiL 500 MG TABLET PO (14:29)
--- NOTE | 2024-04-11 15:33 | MHC.CM.PN ---
Pt is medically cleared for discharge home self-care, pt has arranged her own transport home.
--- NOTE | 2024-04-16 18:06 | P.CDIM_ITS ---
PROVIDER RESPONSE TEXT: To clarify, the appropriate diagnosis supported by the clinical indicators: Cachexia QUERY TEXT: PHYSICIAN'S DOCUMENTATION REQUEST Date of Query: 04/10/2024 11:24 AM EDT Patient Name: Talia Solano Admit Date: 04/10/2024 Dear Norm Campo MD, A review of the medical record indicates additional documentation may be needed. Please review below and update the documentation accordingly. Clinical Indicators: Height: 5ft 3in Weight: 43.545kg BMI: 17.0 If possible, please provide an associated diagnosis related to the abnormal BMI, such as: Underweight Weight loss Cachexia Anorexia Other (explain) Clinically unable to determine (explain) Thank you, [place] Canales, CCS, CDIS Use of terms such as suspected, likely, concern for, or probable (associated with a specific diagnosi s that is being evaluated, monitored, or treated as if it exists) are acceptable and can be coded in the inpatient se tting, when documented at the time of discharge. Please use your independent medical judgment in providing your response. THIS QUERY IS PART OF THE PERMANENT MEDICAL RECORD
== END 2024-04-11 15:39 | disposition home or self-care (01) | DRG 871 ==
LOC: HO.ED 22:19 → HO.EDOVER 22:29 → HO.IMC 04-10 19:44
PROVIDERS: Registered Nurse Emergency; Admitting Provider Student in an Organized Health Care Education/Training Program; Emergency Provider Emergency Medicine; PCP Internal Medicine; Visit Provider Internal Medicine
DX: A41.9 Sepsis, unspecified organism (principal); J18.9 Pneumonia, unspecified organism; J96.01 Acute respiratory failure with hypoxia; J44.0 Chronic obstructive pulmonary disease with (acute) lower respiratory infection; J44.1 Chronic obstructive pulmonary disease with (acute) exacerbation; R64 Cachexia; Z68.1 Body mass index [BMI] 19.9 or less, adult; F17.210 Nicotine dependence, cigarettes, uncomplicated; Z71.6 Tobacco abuse counseling; Z20.822 Contact with and (suspected) exposure to COVID-19; Z79.899 Other long term (current) drug therapy
CPT/HCPCS: 0241U; 36415; 71046; 80048; 80053; 83605; 85025; 87040; 87070; 87205; 94640; 99285; J0456; J0696; J1650

== ENCOUNTER → 2024-04-09 22:19 | Outpatient (BNV) | payer MEDICARE, SELFPAY | PROVIDERS: Admitting Provider Student in an Organized Health Care Education/Training Program; Emergency Provider Emergency Medicine; PCP Internal Medicine; Visit Provider Student in an Organized Health Care Education/Training Program | DX: J44.9 Chronic obstructive pulmonary disease, unspecified (principal); J96.01 Acute respiratory failure with hypoxia; J18.9 Pneumonia, unspecified organism; F17.200 Nicotine dependence, unspecified, uncomplicated | CPT/HCPCS: 99223; 99232; 99239 ==